=== PATIENT | female | born 1955 | race Caucasian/White ===

== ENCOUNTER 2017-04-12 11:30 | Emergency (ER) | payer MEDICARE, OTHER ==
[2017-04-12] MEDS ORDERED: Sodium Chloride 0.9% 5 ML Syringe FLUSH PRN (11:39)
[2017-04-12] MEDS ORDERED: Ondansetron 4 MG/2 ML SDV IVPUSH ONE (11:39)
[2017-04-12] MEDS ORDERED: Morphine 4 MG/ML Syringe IVPUSH ONE (11:39)
[2017-04-12] MEDS ORDERED: Diphtheria,Pertussis(Acell),Tetanus Vaccine 0.5 ML SDV IM ONE (11:39)
[2017-04-12] MEDS ORDERED: ceFAZolin 1 GM Vial IVPUSH ONE (11:39)
--- NOTE | 2017-04-12 12:20 | EDM.PDOC ---
ED HPI GENERAL MEDICAL PROBLEM - General Chief Complaint: Upper Extremity Injury/Pain Stated Complaint: CUT OFF FINGER Time Seen by Provider: 04/12/17 11:38 Source of Information: Reports: Patient History Limitations: Reports: No Limitations - History of Present Illness INITIAL COMMENTS - FREE TEXT/NARRATIVE: PT STATES SHE WAS USING [employer] WHILE CUTTING WOOD AND ACCIDENTALLY INJURED LEFT HAND JUST [employer]. DENIES ANY OTHER INJURY. TIP OF LEFT 5TH DIGIT WAS NOT RECOVERED Onset: Today Onset Date: 04/12/17 Duration: Minutes: Location: Reports: Upper Extremity, Left Quality: Reports: Sharp Severity: Moderate Improves with: Reports: None Worsens with: Reports: None Context: Reports: Trauma Associated Symptoms: Reports: No Other Symptoms - Related Data Allergies Allergy/AdvReac Type Severity Reaction Status Date / Time ciprofloxacin [From Cipro] Allergy Hives Verified 05/14/16 11:45 ciprofloxacin HCl Allergy Hives Verified 05/14/16 11:45 [From Cipro] Penicillins Allergy Hives Verified 05/14/16 11:45 Home Meds: Home Meds Cyclobenzaprine [Flexeril] 10 mg PO TID 12/13/14 [History] Fenofibrate,Micronized [Fenofibrate] 134 mg PO DAILY 12/13/14 [History] Levothyroxine [Synthroid] 50 mcg PO ACBREAKFAST 12/13/14 [History] Multivitamins 1 each PO DAILY 12/13/14 [History] Omeprazole 1 each PO DAILY 12/13/14 [History] Rosuvastatin [Crestor] 10 mg PO DAILY 12/13/14 [History] SitaGLIPtin [Januvia] 100 mg PO DAILY 12/13/14 [History] Venlafaxine [Effexor] 75 mg PO DAILY 12/13/14 [History] traMADol [Ultram] 50 mg PO Q8H #15 tablet 05/14/16 [Rx] Past Medical History Cardiovascular History: Reports: High Cholesterol Gastrointestinal History: Reports: GERD Musculoskeletal History: Reports: Arthritis Psychiatric History: Reports: Anxiety, Depression Endocrine/Metabolic History: Reports: Diabetes, Type II, Hypothyroidism Social & Family History - Tobacco Use Smoking Status *Q: Never Smoker - Caffeine Use Caffeine Use: Reports: Coffee, Soda - Alcohol Use Days Per Week of Alcohol Use: 0 Number of Drinks Per Day: 0 Total Drinks Per Week: 0 - Recreational Drug Use Recreational Drug Use: No Drug Use in Last 12 Months: No Review of Systems - Review of Systems Review Of Systems: ROS reveals no pertinent complaints other than HPI. Constitutional: Reports: No Symptoms Eyes: Reports: No Symptoms Ears: Reports: No Symptoms Nose: Reports: No Symptoms Mouth/Throat: Reports: No Symptoms Respiratory: Reports: No Symptoms Cardiovascular: Reports: No Symptoms GI/Abdominal: Reports: No Symptoms Genitourinary: Reports: No Symptoms Musculoskeletal: Reports: Hand Pain Skin: Reports: Wound (LEFT 4/5TH DIGITS) Neurological: Reports: No Symptoms Psychiatric: Reports: No Symptoms ED EXAM, GENERAL - Physical Exam Exam: See Below Exam Limited By: No Limitations General Appearance: Alert, WD/WN, Mild Distress Throat/Mouth: Normal Inspection, Normal Oropharynx, No Airway Compromise Head: Atraumatic, Normocephalic Respiratory/Chest: No Respiratory Distress Extremities: Other (LEFT HAND 4TH DIGIT LACERATION / 5TH DIGIT DISTAL AMPUTATION ) Neurological: Alert, Oriented, Normal Cognition Psychiatric: Normal Affect, Normal Mood Skin Exam: Warm, Dry, Normal Color, No Rash Course - Orders/Labs/Meds Orders: Active Orders 24 hr Category Date Time Status Peripheral IV Care [RC] . DIRECTED Care 04/12/17 11:40 Ordered Vaccines to be Administered [RC] PER UNIT ROUTINE Care 04/12/17 11:40 Ordered Hand 2V Lt [CR] Stat Exams 04/12/17 11:39 Ordered Sodium Chloride 0.9% [Syrex Flush] Med 04/12/17 11:39 Ordered 5 ml FLUSH Q8HR PRN Peripheral IV Insertion Adult [OM.PC] Routine Oth 04/12/17 11:39 Ordered Medication Orders Sodium Chloride (Syrex Flush) 5 ml FLUSH Q8HR PRN PRN Reason: Keep Vein Open Last Admin: 04/12/17 11:51 Dose: 5 ml Meds: Medications Generic Name Dose Route Start Last Admin Trade Name Freq PRN Reason Stop Dose Admin Sodium Chloride 5 ml 04/12/17 11:39 04/12/17 11:51 Syrex Flush FLUSH 5 ml Q8HR PRN Administration Keep Vein Open Discontinued Medications Generic Name Dose Route Start Last Admin Trade Name Freq PRN Reason Stop Dose Admin Cefazolin Sodium 1 gm 04/12/17 11:39 04/12/17 11:50 Ancef IVPUSH 04/12/17 11:40 1 gm ONETIME ONE Administration Diphtheria/Tetanus/Acell Pertussis 0.5 ml 04/12/17 11:39 Adacel IM 04/12/17 11:40 .ONCE ONE Morphine Sulfate 4 mg 04/12/17 11:39 04/12/17 11:49 Morphine IVPUSH 04/12/17 11:40 4 mg ONETIME ONE Administration Ondansetron HCl 4 mg 04/12/17 11:39 04/12/17 11:48 Zofran IVPUSH 04/12/17 11:40 4 mg ONETIME ONE Administration - Radiology Interpretation Free Text/Narrative:: HAND XRAY SHOWS AMPUTATION OF LEFT 5TH DIGIT AND FRACTURE 4TH DIGIT - Re-Assessments/Exams Free Text/Narrative Re-Assessment/Exam: 04/12/17 12:[address] MORRISON, [facility]TH[facility] AT [facility]. WILL ACCEPT DIRECT ADMIT AND TRANSFER OF CARE Departure - Departure Time of Disposition: 12:34 Disposition: DC/Tfer to Acute Hospital 02 Condition: Fair Clinical Impression: Finger amputation, traumatic Qualifiers: Encounter type: initial encounter Qualified Code(s): S68.119A - Complete traumatic metacarpophalangeal amputation of unspecified finger, initial encounter - Discharge Information Forms: ED Department Discharge, Interfacility Transfer EMTALA - My Orders Last 24 Hours: My Active Orders 04/12/17 11:39 Hand 2V Lt [CR] Stat Sodium Chloride 0.9% [Syrex Flush] 5 ml FLUSH Q8HR PRN Peripheral IV Insertion Adult [OM.PC] Routine 04/12/17 11:40 Peripheral IV Care [RC] . DIRECTED Vaccines to be Administered [RC] PER UNIT ROUTINE - Assessment/Plan Last 24 Hours: My Active Orders 04/12/17 11:39 Hand 2V Lt [CR] Stat Sodium Chloride 0.9% [Syrex Flush] 5 ml FLUSH Q8HR PRN Peripheral IV Insertion Adult [OM.PC] Routine 04/12/17 11:40 Peripheral IV Care [RC] . DIRECTED Vaccines to be Administered [RC] PER UNIT ROUTINE Assessment:: LEFT HAND 4/5 DIGITS FRACTURE AND LACERATIONS
[2017-04-12 12:46] VITALS: BP 138/72
== END 2017-04-12 12:50 ==
LOC: KA.ED 11:30
DX: S68.117A Complete traumatic metacarpophalangeal amputation of left little finger, initial encounter (principal); E78.00 Pure hypercholesterolemia, unspecified; K21.9 Gastro-esophageal reflux disease without esophagitis; M19.90 Unspecified osteoarthritis, unspecified site; F32.9 Major depressive disorder, single episode, unspecified; E11.9 Type 2 diabetes mellitus without complications; E03.9 Hypothyroidism, unspecified; Z88.8 Allergy status to other drugs, medicaments and biological substances; Z88.0 Allergy status to penicillin; Z88.1 Allergy status to other antibiotic agents; Z79.899 Other long term (current) drug therapy; Z23 Encounter for immunization; W27.0XXA Contact with workbench tool, initial encounter
CPT/HCPCS: 73120; 90471; 90715; 96374; 96375; 99283; J0690; J2270; J2405